=== PATIENT | female | born 1980 | race Caucasian/White ===

== ENCOUNTER 2016-12-15 10:41 | Emergency (ER) | payer MEDICAID, SELFPAY ==
[2016-12-15] MEDS ORDERED: Morphine 10 MG/ML VIAL ONE (11:06)
[2016-12-15] MEDS ORDERED: traMADol HCl 50 MG TAB ONE (14:32)
--- NOTE | 2016-12-15 15:19 | MRI ---
MRI LUMBAR SPINE NONCONTRAST: DATE: 12-15-16 HISTORY: 36-year-old female with chronic low back pain with interval worsening last week, associated with lef t foot pain and episode of urinary incontinence. COMPARISON: No prior lumbar spine MRI. FINDINGS: There are five lumbar type vertebrae. Vertebral body heights are maintained. Alignment is normal. No major bone marrow signal abnormality. Conus medullaris terminates at lower L1 level. There is disc desiccation and disc space narrowing, mild to moderate at L1-2, and to a somewhat greater degree at L4-5, and to a lesser degree at L3-4. The rest of the discs have normal signal and height. There are minimal disc bulges at L1-2, L3-4, and L4-5. There is posterior midline annular fissure at L4-5 ass ociated with a small superimposed central disc protrusion. The cauda equina is arranged in a symmetr ical, normal distribution throughout the thecal sac. There is no nerve root impingement at any level . There is no central spinal canal stenosis at any level. There is mild to moderate narrowing of the left L3-4 neural foramen without scott nerve root impingement. There is no significant neural glory inal stenosis at any other level. There are bilateral L5 pars interarticularis defects, without spon dylolisthesis at L5-S1. Perivertebral spaces are normal. IMPRESSION: 1. Bilateral L5 spondylolysis without spondylolisthesis. 2. Mild degenerative disc changes at L1-2, L3-4, and especially L4-5. 3. No central spinal canal stenosis, high grade neural foraminal stenosis, or nerve root impingement at any level. DAYANARA Duong POS: [facility]
== END 2016-12-15 14:54 | disposition home or self-care (01) ==
LOC: ERS 10:41
DX: M54.5 Low back pain (principal); M54.6 Pain in thoracic spine; F41.9 Anxiety disorder, unspecified
CPT/HCPCS: 72148; 96372; J2270

== ENCOUNTER 2020-09-09 18:49 | Emergency (ER) | payer MEDICAID, OTHER ==
[2020-09-09 19:53] LABS: #Basophils 0.1 thou/uL (0.0-0.2); #Eosinphils 0.2 thou/uL (0.0-0.7); #Lymphocytes 2.1 thou/uL (1.20-3.40); #Monocytes 0.8 thou/uL (0.11-0.59); #Neutrophils 6.9 thou/uL (1.40-6.50); %Basophils 0.8 % (0.0-1.0); %Eosinophils 1.6 % (0.0-10.0); %Lymphocytes 20.5 % (21.0-51.0); %Monocytes 7.9 % (0.0-10.0); %Neutrophils 69.3 % (42.0-75.0); Hemoglobin 13.3 g/dL (12.0-16.0); Mean Corpuscular HGB CONC 34.9 g/dL (32.0-36.0); Mean Corpuscular Hemoglobin 30.8 pg (27.0-31.0); Mean Corpuscular Volume 88.4 fL (78.0-98.0); Mean Platelet Volume 8.6 fL (7.4-10.4); Platelet Count 315 thou/uL (130-400); RBC Distribution Width 11.8 % (11.5-14.5); Red Blood Cell (RBC) Count 4.31 mill/uL (4.20-5.40)
[2020-09-09 20:13] LABS: Acetaminophen Less than 6.0 mcg/mL (10.0-30.0); Alcohol Less than 10 mg/dL (Less than 10); Salicylate Less than 8.0 mg/dL (15.0-30.0)
[2020-09-09 20:14] LABS: ALT (SGPT) 11 U/L (8-55); AST (SGOT) 11 U/L (5-34); Alcohol Less than 10 mg/dL (Less than 10); Alkaline Phosphatase 58 U/L (40-110); Anion Gap 12 mmol/L (10-20); BUN (Urea Nitrogen) 15 mg/dL (7.0-18.7); Bilirubin, Total 0.6 mg/dL (0.2-1.2); Calc. Creatinine Clearance 0 mL/min (70-130); Calcium 8.8 mg/dL (7.8-10.44); Carbon Dioxide 23 mmol/L (22-29); Chloride 105 mmol/L (98-107); Globulin 2.8 g/dL (2.4-3.5); Glucose 100 mg/dL (70-105); Potassium 3.8 mmol/L (3.5-5.1); Protein, Total 6.8 g/dL (6.0-8.3); Sodium 136 mmol/L (136-145)
== END 2020-09-09 20:37 | disposition left against medical advice (07) ==
LOC: ERS 18:49
DX: Z02.83 Encounter for blood-alcohol and blood-drug test (principal); F17.290 Nicotine dependence, other tobacco product, uncomplicated
CPT/HCPCS: 36415; 80053; 80307; 84443; 85025; 93005